=== PATIENT | male | born 1945 | race Caucasian/White ===

== ENCOUNTER 2024-11-10 18:51 | Emergency (ER) | payer MEDICARE, OTHER, SELFPAY ==
[2024-11-10 18:54] VITALS: BP 133/90; PULSE 73; RESP 16; TEMP 36.1; O2SAT 96
--- NOTE | 2024-11-10 19:00 | DI.CT_ITS ---
Exam(s) CT HEAD CERVICAL SPINE WO EXAM: CT HEAD CERVICAL SPINE WO CLINICAL HISTORY: fall, hi, anticoag. TECHNIQUE: Imaging Protocol: Axial computed tomography images with coronal and sagittal reformatted images were created and reviewed COMPARISON: No exams were available for comparison FINDINGS: Head CT Ventricles and Extra axial spaces: Normal in size and morphology for the patient's age. Hemorrhage: None. Cerebral parenchyma: No evidence of mass or acute infarct. Midline shift: None. Brainstem/Cerebellum: Normal. Calvarium: Normal. Visualized Paranasal sinuses/Mastoids: Opacification of multiple ethmoid sinuses. Mucosal thickening in the inferior frontal sinuses as well as sphenoid sinuses. Significant mucosal thickening of the maxillary sinuses. Soft tissues: Unremarkable. Cervical Spine CT BONES: Vertebral body heights are maintained. Alignment is normal. There is no evidence of acute fracture. Degenerative disc changes and facet degenerative changes are seen . SOFT TISSUES: No paraspinal hematoma. The airway appears intact. Bilateral carotid artery stents. No pneumothorax is seen at the lung apices. IMPRESSION: Head CT: Chronic sinus disease. No acute abnormality. C-spine CT: Degenerative changes, no acute abnormality. The preliminary [facility] report was reviewed. RADIATION DOSE DELIVERED: 1,406.4mGy.cm Total DLP DATA REPOSITORY: All CT scans at this facility are submitted to the National Radiology Data Registry (NRDR) Dose Index Registry (DIR) with the [employer] ([employer]). RADIATION OPTIMIZATION: All CT scans at this facility use at least one of these dose optimization techniques: automated exposure control; mA and/or kV adjustment per patient size (includes targeted exams where dose is matched to clinical indication); or iterative reconstruction.
--- NOTE | 2024-11-10 20:01 | DI.[facility]_ITS ---
PROCEDURE INFORMATION: Exam: CT Head Without Contrast Exam date and time: 11/10/2024 7:15 PM Age: 79 years old Clinical indication: Injury or trauma; Blunt trauma (contusions or hematomas); Other: Fall, hi, anticoag TECHNIQUE: Imaging protocol: Computed tomography of the head without contrast. COMPARISON: No relevant prior studies available. FINDINGS: Brain: Normal. No hemorrhage. Unremarkable white matter. No mass effect. Cerebral ventricles: No ventriculomegaly. Paranasal sinuses: Chronic bilateral maxillary and ethmoid sinus disease. Mastoid air cells: Visualized mastoid air cells are well aerated. Bones: Unremarkable. No acute fracture. Soft tissues: Unremarkable. IMPRESSION: 1. No acute intracranial abnormalities noted. 2. Chronic sinus disease as detailed above. PROCEDURE INFORMATION: Exam: CT Cervical Spine Without Contrast Exam date and time: 11/10/2024 7:15 PM Age: 79 years old Clinical indication: Injury or trauma; Blunt trauma (contusions or hematomas); Other: Fall, hi, anticoag TECHNIQUE: Imaging protocol: Computed tomography of the cervical spine without contrast. COMPARISON: No relevant prior studies available. FINDINGS: Bones: Mild anterolisthesis of C4 in relation to C5. 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 No acute fracture. No central spinal stenosis or cord compression. Neural foraminal narrowing identified at several levels secondary to uncovertebral joint and facet joint arthropathy. Lungs: Lung apices are normal. Soft tissues: Unremarkable. IMPRESSION: 1. No acute fracture. 2. Osteoarthritic changes as detailed above without underlying spinal stenosis or cord compression Dictated and Authenticated by: Stuart Medrano MD. Orderin Sivan Givens MD
--- NOTE | 2024-11-10 22:29 | ED.GENADUL_ITS ---
Discharge Plan Disposition Patient Disposition: Home Discharge Details Clinical Impression: Head injury, Abrasion, Neck strain Primary Care Provider: [facility] Provider: Tosha Finnegan Discharge Instructions Additional Instructions: take tylenol as needed for pain keep wound clean and dry if you develop headache, nausea, vomiting, or worsening symptoms please be reassessed Discharge Data Discharge Date/Time-TO BE ENTERED AT DEPARTURE: 11/10/24 20:12 HPI General Date/Time Provider Initiated Documentation: 11/10/24 18:57 . HPI Narrative: This 79-year-old male history of atrial fibrillation who takes Eliquis presents after a mechanical fall. Patient states he hit his head and had some minor neck pain there was no loss of consciousness and tetanus up-to-date. He lives in [place] and is here during work. Event occurred 2 hours prior to arrival has been ambulatory since the event occurred. General Stated Complaint: Fall/Non TraumaCriteria SORAYA: 3 Exam Narrative Exam Narrative: Alert and oriented 79 patient over the frontal region on the left with small hematoma no hemotympanum no crepitus pupils equal round reactive to light commendation no cervical spine tenderness centrally, mild paraspinal tenderness no visible sign of chest wall trauma lungs clear to auscultation no respiratory distress cardiac rate normal no lumbar spine or thoracic spine tenderness no hip tenderness appreciated no visible sign of trauma to bilateral lower extremities GCS 15 Course Vital Signs Vital signs: Vital Signs Temperature 36.1 C L 11/10/24 18:54 Pulse 73 11/10/24 18:54 Respiratory Rate 16 11/10/24 18:54 Blood Pressure 133/90 11/10/24 18:54 Pulse Oximetry 96 11/10/24 18:54 Temperature 36.1 C L 11/10/24 18:54 Temperature Source Tympanic 11/10/24 18:54 Pulse 73 11/10/24 18:54 Respiratory Rate 16 11/10/24 18:54 Blood Pressure 133/90 11/10/24 18:54 Pulse Oximetry 96 11/10/24 18:54 Medical Decision Making Results: CT head and cervical spine per radiology interpretation of my review does not show evidence of acute abnormality per radiology 79-year-old male presenting with head injury just prior to arrival on Eliquis. CT was therefore ordered sleep with above documentation. Patient otherwise is fully alert and oriented as neurological baseline. Cervical collar was removed. As patient is asymptomatic aside from some's area of tenderness over the abrasion I have low suspicion for a concussion clinically although if he does develop a headache or nausea he is encouraged to return immediately for reassessment. Return precautions were reviewed in detail and patient expressed understanding discharged home ambulatory steady gait with nonfocal neurological exam Differential diagnoses include subarachnoid hemorrhage subdural hematoma concussion PFSH All Active Problems (Updated 11/10/24 @ 20:08 by SCARLETT Anderson) Neck strain (Acute) Abrasion (Acute) Head injury (Acute) Social History Smoking/Tobacco Use Status: Former Tobacco Use Smoking risk assessment performed?: Yes Alcohol Intake: current Alcohol Intake frequency: a few times a month Drug use: Never Substance use type: does not use Housing: house Do you feel safe at home: Yes Do you feel safe in your relationship?: Yes
== END 2024-11-10 20:12 | disposition home or self-care (01) ==
LOC: ER 20:13
PROVIDERS: Emergency Provider Physician Assistant
DX: S09.90XA Unspecified injury of head, initial encounter (principal); M54.2 Cervicalgia; X58.XXXA Exposure to other specified factors, initial encounter
CPT/HCPCS: 99284; 99283; 70450; 72125